=== PATIENT | female | born 1990 | race American Indian/Alaskan Native ===

== ENCOUNTER 2016-10-24 23:30 | Emergency (ER) | payer OTHER ==
[2016-10-24 23:42] VITALS: RESP 18; TEMP 97.7
--- NOTE | 2016-10-24 23:43 | C.PDOC ---
<Lonnie Morillo - Last Filed: 10/24/16 23:43> <Lakshmi Daley - Last Filed: 10/25/16 01:01> Time Seen by Provider: 10/24/16 23:43 Chief Complaint (Nursing): Headache Past Medical History Reviewed: Historical Data, Nursing Documentation, Vital Signs - Medical History PMH: Asthma, Bipolar Disorder Surgical History: Cholecystectomy Family History: States: No Known Family Hx - Social History Hx Alcohol Use: No Hx Substance Use: No - Immunization History Hx Tetanus Toxoid Vaccination: No Hx Influenza Vaccination: No Hx Pneumococcal Vaccination: No <Lonnie Morillo - Last Filed: 10/24/16 23:43> ED Course And Treatment O2 Sat by Pulse Oximetry: 100 Pulse Ox Interpretation: Normal <Lonnie Morillo Filed: 10/24/16 23:43> - Laboratory Results Result Diagrams: 10/25/16 00:10 10/25/16 00:10 <Lakshmi Daley - Last Filed: 10/25/16 01:01> Disposition Counseled Patient/Family Regarding: Studies Performed, Diagnosis - Disposition Disposition Time: 23:43 <Lonnie Morillo - Last Filed: 10/24/16 23:43> - POA Present On Arrival: None <Lakshmi Daley - Last Filed: 10/25/16 01:01> - Disposition Referrals: Non [facility] Provider, [Primary Care Provider] - Disposition: HOME/ ROUTINE Condition: STABLE - Clinical Impression Clinical Impression: Headache
[2016-10-24] MEDS ORDERED: Sodium Chloride 0.9% 1,000 ML IV ONE (23:48)
[2016-10-25] MEDS ORDERED: Sodium Chloride 0.9% 1,000 ML ONE (00:02)
[2016-10-25 00:25] LABS: ALBUMIN 3.6 g/dL (3.5-5.0)
[2016-10-25 00:26] LABS: BASO % 0.7 % (0.0-2.0); EOS # 0.1 K/uL (0.0-0.7); EOS % 1.5 % (0.0-4.0); HEMOGLOBIN 11.9 g/dL (11.0-16.0); LYMPH # 1.9 K/uL (1.0-4.3); MEAN CELL VOLUME 66.7 fL (81.0-99.0); MEAN CORPUSCULAR HEMOGLOBIN 21.3 pg (27.0-31.0); MEAN CORPUSCULAR HGB CONC 31.9 g/dL (33.0-37.0); MONO # 0.5 K/uL (0.0-0.8); MONO % 7.8 % (0.0-10.0); NEUT # 3.8 K/uL (1.8-7.0); NRBC % 0.2 % (0.0-2.0); RBC 5.58 Mil/uL (3.80-5.20); RED CELL DISTRIBUTION WIDTH 16.1 % (11.5-14.5); WHITE BLOOD COUNT 6.3 K/uL (4.8-10.8)
[2016-10-25 00:28] LABS: AST/SGOT 55 U/L (14-36); GFR AFRICAN-AMERICAN > 60; GFR NON-AFRICAN AMERICAN > 60
[2016-10-25 00:29] LABS: ALB/GLOB RATIO 1.4 (1.0-2.1); ALT/SGPT 101 U/L (9-52); BLOOD UREA NITROGEN 8 mg/dL (7-17); CALCIUM 8.6 mg/dl (8.6-10.4)
[2016-10-25 00:41] VITALS: BP 110/69; PULSE 75; O2SAT 99
--- NOTE | 2016-10-25 01:21 | C.PDOC ---
History Of Present Illness A 26 y/o F c/o frontal headache that has been going on all day. Headache is throbbing in nature. Patient took no meds for the complaint. Patient states she has history of frequent headaches. She reports "her mother and sister have migraines". Reports nausea and one episode of vomiting. Denies fever, chills, dizziness, weakness, neck pain, visual changes, photophobia, or any other complaints. Time Seen by Provider: 10/24/16 23:43 Chief Complaint (Nursing): Headache History Per: Patient History/Exam Limitations: no limitations Onset/Duration Of Symptoms: Hrs Current Symptoms Are (Timing): Still Present Severity: Mild Quality: Aching (Throbbing) Preceeding Symptoms: None Associated Symptoms: denies: Photophobia, Blurred Vision Recent travel outside of the [place]: No Additional History Per: Patient Past Medical History Reviewed: Historical Data, Nursing Documentation, Vital Signs Vital Signs: Last Vital Signs Temp 97.7 F 10/24/16 23:39 Pulse 75 10/25/16 00:41 Resp 18 10/25/16 00:41 BP 110/69 10/25/16 00:41 Pulse Ox 99 10/25/16 01:24 - Medical History PMH: Asthma, Bipolar Disorder Surgical History: Cholecystectomy Family History: States: No Known Family Hx - Social History Hx Alcohol Use: No Hx Substance Use: No - Immunization History Hx Tetanus Toxoid Vaccination: No Hx Influenza Vaccination: No Hx Pneumococcal Vaccination: No Review Of Systems Except As Marked, All Systems Reviewed And Found Negative. Constitutional: Negative for: Fever, Chills Eyes: Negative for: Vision Change, Other (Photophobia) ENT: Negative for: Ear Pain, Throat Pain Cardiovascular: Negative for: Chest Pain, Palpitations Respiratory: Negative for: Cough, Shortness of Breath Gastrointestinal: Positive for: Nausea, Vomiting Musculoskeletal: Negative for: Neck Pain Skin: Negative for: Rash Neurological: Positive for: Headache. Negative for: Weakness, Dizziness Physical Exam - Physical Exam Appears: Non-toxic, No Acute Distress Skin: Warm, Dry Head: Atraumatic, Normacephalic, No Tenderness, No Swelling Eye(s): bilateral: Normal Inspection, PERRL, EOMI Nose: Normal Oral Mucosa: Moist Neck: Normal ROM, Supple Chest: Symmetrical Cardiovascular: Rhythm Regular Respiratory: Normal Breath Sounds, No Accessory Muscle Use, No Rales, No Rhonchi , No Wheezing Extremity: Bilateral: Atraumatic, Normal Color And Temperature, Normal ROM Pulses: Left Radial: Normal Neurological/Psych: Oriented x3, Normal Speech, Normal Cranial Nerves, No Cerebellar Signs, Normal Motor, Normal Sensation, Other (No focal deficit) Gait: Steady ED Course And Treatment - Laboratory Results Result Diagrams: 10/25/16 00:10 10/25/16 00:10 Lab Interpretation: No Acute Changes O2 Sat by Pulse Oximetry: 99 (RA) Pulse Ox Interpretation: Normal Medical Decision Making Medical Decision Making: Impression: A 26 y/o F c/o frontal headache Plan: -Tylenol -Reglan -IV fluids Progress: Labs reviewed and unremarkable. Upon reevaluation patient was sleeping comfortably. Patient awake and reports headache has improved. She has no fever, neck is supple and no signs of dehydration or illness. Patient feels comfortable going home and will be discharged. She is asking for work note. Disposition Counseled Patient/Family Regarding: Diagnosis, Need For Followup, Rx Given - Disposition Referrals: Non [facility] Provider, [Primary Care Provider] - Disposition: HOME/ ROUTINE Disposition Time: 01:00 Condition: STABLE Additional Instructions: Follow up with the clinic in 2-5 days for further evaluation. Take medications as prescribed. Return to the emergency department at any time if symptoms persist or worsen. You may call [facility] for any assistance . Prescriptions: Acetaminophen/Butalbital/Caf [Fioricet] 1 tab PO TID PRN #20 tab PRN Reason: Headache Instructions: Migraine Headache (ED) Forms: Work Excuse - POA Present On Arrival: None - Clinical Impression Clinical Impression: Headache - Scribe Statement The provider has reviewed the documentation as recorded by the Scribe Susan nuñez All medical record entries made by the Scribe were at my direction and personally dictated by me. I have reviewed the chart and agree that the record accurately reflects my personal performance of the history, physical exam, medical decision making, and the department course for this patient. I have also personally directed, reviewed, and agree with the discharge instructions and disposition.
== END 2016-10-25 01:10 | disposition home or self-care (01) ==
LOC: SUPCPDRO 23:30 → C.ER 23:30
DX: R51 Headache (principal)
CPT/HCPCS: 80053; 85025; 96361; 96374; 99284; J2765; J7040